=== PATIENT | female | born 1965 | race Caucasian/White ===

== ENCOUNTER 2021-08-26 12:38 | Emergency (ER) | payer BC ==
--- OUTSIDE RECORDS SUMMARY | 2021-08-26 12:40 | XMS REPORT | Continuity of Care Document ---
:1965 Author Organization [facility] t Address [address] [place] [address] Care Team Providers Name Role Phone Cici Coyle Attending Clinician Unavailable Cici Coyle Admitting Clinician Unavailable Problems This patient has no known problems. Allergies, Adverse Reactions, Alerts This patient has no known allergies or adverse reactions. Medications This patient has no known medications. Procedures This patient has no known procedures. Encounters Start End Encounter Admission Attending Care Care Encounter Source Date/Time Date/Time Type Type Clinicians Facility Department ID 2021-06-17 Outpatient BRINDA Coyle [facility] [id number] [facility] [address] 13:46:31 [place] [id number] [facility] 2021-03-31 2021-03-31 ambulatory [facility] [id number] [facility] 2021-01-29 2021-01-29 Outpatient [facility] [id number] [facility] 2021-01-27 2021-01-27 Outpatient [facility] [id number] [facility] Results This patient has no known results.
--- NOTE | 2021-08-26 13:11 | RAD REPORT ---
EXAM DESCRIPTION: CT - Stone Protocol - 08/26/2021 12:58 pm CLINICAL HISTORY: Flank pain. FLANK PAIN COMPARISON: No comparisons TECHNIQUE: Axial images were obtained without oral or IV contrast. Lack of contrast limits solid org an and vascular assessment. The [id number] spans the entirety of the system partially obscuring uppermost abdomen and lung bases. Coronal reformatted images were obtained and reviewed. All CT scans are performed using dose optimization technique as appropriate and may include automated exposure control or mA/KV adjustment according to patient size. FINDINGS: The lower lung oden are clear. Imaged portions of the liver and spleen show no suspicious findings on non-contrast imaging.Numerous hepatic cysts are present, likely benign. Small hiatal hernia. The pancreas and left adrenal gland ar e normal.11 mm adrenal adenoma. No pathologic lymphadenopathy in the abdomen or pelvis. 3 mm stone is present in the proximal left ureter with mild left hydronephrosis. Additional punctate calculi are present in the calices of the left kidney. No right-sided stones evident. No bowel obstruction, free air, free fluid or abscess. Normal appendix noted.Diverticulosis coli of t he sigmoid colon is present without diverticulitis. No significant bony abnormality. IMPRESSION: 3 mm stone proximal left ureter with mild left hydronephrosis. Left nephrolithiasis.
[2021-08-26] MEDS ORDERED: ONDANSETRON 4 MG/2 ML VIAL ONE ×2 (13:12→15:39)
[2021-08-26] MEDS ORDERED: NA CHLORIDE 0.9% 1,000 ML ONE (13:12)
[2021-08-26] MEDS ORDERED: KETOROLAC 30 MG/ML INJ ONE (13:12)
[2021-08-26 13:15] LABS: Urine Blood Trace-intact (Negative); Urine Glucose Negative (Negative); Urine Protein Negative (Negative); Urine Specific Gravity 1.025 (1.005-1.030); Urine pH 6.5 (5.0-7.0)
[2021-08-26 13:33] LABS: Urine Bacteria <20 /HPF (<20); Urine Mucus 1+ /HPF (NONE SEEN)
[2021-08-26] MEDS ORDERED: TAMSULOSIN 0.4 MG SR CAP ONE (13:38)
[2021-08-26] MEDS ORDERED: NA CHLORIDE 0.9% 50 ML ONE (13:39)
[2021-08-26] MEDS ORDERED: CEFTRIAXONE 1000 MG/VIAL ONE (13:39)
[2021-08-26] MEDS ORDERED: MAGNESIUM SULFATE 1 gm IVPB 1 GM/100 ML BAG IV ONE (13:39)
[2021-08-26 14:05] LABS: Absolute Lymphocytes (CBC) 1.3 K/uL (0.7-4.9); Hematocrit 38.1 % (36.0-45.0); Lymphocytes % 31.3 % (15.3-44.8); MPV 7.4 fL (7.6-11.3)
[2021-08-26 14:10] LABS: Albumin 3.7 g/dL (3.4-5.0); Bilirubin Total 0.3 mg/dL (0.2-1.0); Potassium 3.7 mmol/L (3.5-5.1); Protein, Total 7.5 g/dL (6.4-8.2)
[2021-08-26] MEDS ORDERED: HYDROMORPHONE HCL 1 MG/ML INJ ONE (14:23)
--- NOTE | 2021-08-26 15:32 | EDPHYS ---
Physician Documentation [facility] Name: Louise Bazzi Age: 56 yrs Sex: Female : 1965 Arrival Date: 08/26/2021 Time: 12:39 Bed 15 Private MD: Bill Lopez ED Physician Ulices Bobo HPI: 08/26 12:50 This 56 yrs old Female presents to ER via Ambulatory with complaints of Possible Kidney cp Stone. 12:50 The patient complains of pain in the left flank. The pain does not radiate. Onset: The cp symptoms/episode began/occurred suddenly, just prior to arrival. Associated signs and symptoms: Pertinent negatives: diarrhea, dysuria, fever, pain radiating to the lower extremities, vomiting. Severity of pain: in the emergency department the pain is unchanged despite home interventions. The patient has experienced similar episodes in the past, today's symptoms are similar, to when the patient was apparently diagnosed with kidney stone. Historical: - Allergies: 12:44 No Known Allergies; jd3 - Home Meds: 12:44 Synthroid Oral [Active]; jd3 - PMHx: 12:44 Thyroid problem; colitis; jd3 - PSHx: 12:44 None; jd3 - Immunization history:: Adult Immunizations up to date, Client reports receiving the 2nd dose of the Covid vaccine, Flu vaccine is up to date. - Social history:: Smoking status: Reported history of juuling and/or vaping. ROS: 12:55 Back: Positive for flank pain, on the left, Negative for pain at rest, pain with cp movement. 12:55 Cardiovascular: Negative for chest pain, palpitations. cp 12:55 Respiratory: Negative for cough, shortness of breath, wheezing. 12:55 Abdomen/GI: Positive for nausea, Negative for vomiting, diarrhea, constipation. Exam: 13:05 Constitutional: The patient appears in no acute distress, alert, awake, non-toxic, well cp developed, well nourished, uncomfortable. 13:05 Head/Face: Normocephalic, atraumatic. cp 13:05 Eyes: Periorbital structures: appear normal, Conjunctiva: normal, no exudate, no injection, Sclera: no appreciated abnormality, Lids and lashes: appear normal, bilaterally. 13:05 ENT: External ear(s): are unremarkable, Nose: is normal, Mouth: Lips: moist, Oral mucosa: moist, Posterior pharynx: Airway: no evidence of obstruction, patent. 13:05 Chest/axilla: Inspection: normal. 13:05 Cardiovascular: Rate: normal. 13:05 Respiratory: the patient does not display signs of respiratory distress, Respirations: normal, no use of accessory muscles, no retractions, labored breathing, is not present, Breath sounds: are clear throughout, no decreased breath sounds, no stridor, no wheezing. 13:05 Abdomen/GI: Inspection: abdomen appears normal, Bowel sounds: active, all quadrants, Palpation: soft, in all quadrants, moderate abdominal tenderness, in the posterior aspect of left lateral abdomen and anterior aspect of left lateral abdomen, rebound tenderness, is not appreciated, voluntary guarding, is elicited in the posterior aspect of left lateral abdomen and anterior aspect of left lateral abdomen. 13:05 Neuro: Orientation: to person, place \T\ time. Mentation: is normal, Motor: moves all fours, strength is normal, Sensation: is normal, Gait: is steady. Vital Signs: 12:44 BP 106 / 72; Pulse 85; Resp 18 S; Temp 97.8(TE); Pulse Ox 98% on R/A; Weight 86.18 kg jd3 (R); Height 5 ft. 10 in. (177.80 cm) (R); Pain 10/10; 13:33 BP 125 / 72; Pulse 83; Resp 16; Pulse Ox 98% on R/A; vg1 14:15 BP 143 / 88; Pulse 82; Resp 16; Pulse Ox 100% on R/A; vg1 15:30 BP 112 / 67; Pulse 72; Resp 16; Pulse Ox 98% on R/A; vg1 12:44 Body Mass Index 27.26 (86.18 kg, 177.80 cm) jd3 MDM: 12:49 Patient medically screened. cp 13:00 Differential diagnosis: nephrolithiasis, pyelonephritis, UTI, diverticulitis, cp pancreatitis. 14:48 ED course: Review of [place] prescription monitor website shows patient last RX for pain cp meds, Tramadol 50 mg #40 on 05/11/2021. 15:32 Data reviewed: vital signs, nurses notes, lab test result(s), radiologic studies, CT cp scan. 15:32 Counseling: I had a detailed discussion with the patient and/or guardian regarding: the cp historical points, exam findings, and any diagnostic results supporting the discharge/admit diagnosis, lab results, radiology results, to return to the emergency department if symptoms worsen or persist or if there are any questions or concerns that arise at home. Response to treatment: the patient's symptoms have markedly improved after treatment, Pain improved with meds. Will discharge to home for continued monitoring. 08/26 12:45 Order name: CBC with Diff; Complete Time: 14:14 08/26 14:39 Interpretation: Normal except: WBC 4.1; MPV 7.4. 08/26 12:45 Order name: CMP; Complete Time: 14:14 08/26 14:15 Interpretation: Normal except: CL 117; CO2 20; GLUC 110; GFR 70; CA 8.4; A/G 1.0; GLOB cp 3.8. 08/26 12:45 Order name: Lipase; Complete Time: 14:14 08/26 14:15 Interpretation: Reviewed. 08/26 12:45 Order name: Urine Microscopic Only; Complete Time: 13:55 08/26 13:55 Interpretation: Normal except: URBC 5-10; SQEPI 5-10. 08/26 12:45 Order name: CT Stone Protocol; Complete Time: 13:16 cp 08/26 13:17 Interpretation: Report reviewed. 08/26 13:16 Order name: Urine Dipstick-Ancillary; Complete Time: 13:16 EDMS 08/26 13:16 Interpretation: Normal except: UKET 1+; UBLD Trace-intact. 08/26 12:45 Order name: IV Saline Lock; Complete Time: 13:29 cp 08/26 12:45 Order name: Labs collected and sent; Complete Time: 13:29 cp 08/26 12:45 Order name: Urine Dipstick-Ancillary (obtain specimen); Complete Time: 14:17 cp 08/26 13:26 Order name: Urine Strainer; Complete Time: 13:29 cp Administered Medications: 13:18 Drug: Ketorolac 15 mg Route: IVP; Site: left forearm; vg1 13:45 Follow up: Response: No adverse reaction; No change in condition vg1 13:18 Drug: NS 0.9% 500 ml Route: IV; Rate: bolus; Site: left forearm; vg1 14:07 Follow up: IV Status: Completed infusion; IV Intake: 500ml vg1 13:20 Drug: Zofran (Ondansetron) 4 mg Route: IVP; Site: left forearm; vg1 15:01 Follow up: Response: No adverse reaction; Marked relief of symptoms vg1 13:35 Drug: Flomax (tamsulosin) 0.4 mg Route: PO; vg1 15:01 Follow up: Response: No adverse reaction vg1 13:40 Drug: Magnesium Sulfate 1 grams Route: IVPB; Infused Over: 30 mins; Site: left forearm; vg1 14:16 Follow up: IV Status: Completed infusion vg1 14:07 Drug: NS 0.9% 500 ml Route: IV; Rate: 125 ml/hr; Site: left forearm; vg1 16:02 Follow up: IV Status: Completed infusion; IV Intake: 200ml vg1 14:16 Drug: Rocephin - (cefTRIAXone) 1 grams Route: IVPB; Infused Over: 30 mins; Site: left vg1 forearm; 15:01 Follow up: IV Status: Completed infusion; IV Intake: 50ml vg1 14:23 Drug: Dilaudid (HYDROmorphone) 1 mg {Note: RASS 1.} Route: IVP; Site: left forearm; vg1 15:01 Follow up: Response: No adverse reaction; Pain is decreased vg1 15:51 Drug: Zofran (Ondansetron) 4 mg Route: IVP; Site: left forearm; vg1 15:51 Follow up: Response: No adverse reaction; Medication administered at discharge. vg1 Disposition: 17:50 Co-signature as Attending Physician, Ulices Bobo MD I agree with the assessment and kdr plan of care. Disposition Summary: 08/26/21 15:32 Discharge Ordered Location: Home cp Problem: new cp Symptoms: have improved cp Condition: Stable cp Diagnosis - Calculus of kidney with calculus of ureter - left cp Followup: cp - With: Job Golden MD - When: 2 - 3 days - Reason: Recheck today's complaints Discharge Instructions: - Discharge Summary Sheet cp - Kidney Stones cp - Renal Colic cp Forms: - Medication Reconciliation Form cp - Thank You Letter cp - Antibiotic Education cp - Prescription Opioid Use cp Prescriptions: - Flomax 0.4 mg Oral capsule - take 1 capsule by ORAL route once daily As needed 1/2 hour following the same cp meal each day; 7 capsule; Refills: 0, Product Selection Permitted - Zofran 4 mg Oral Tablet - take 1 tablet by ORAL route every 12 hours As needed; 20 tablet; Refills: 0, cp Product Selection Permitted - Tylenol-Codeine #3 300 mg-30 mg Oral - take 2 tablet by ORAL route every 6-8 hours As needed; 20 tablet; Refills: 0, cp Product Selection Permitted Signatures: Dispatcher [employer] EDWV Ulices Bobo MD MD kdr J Carlos Jenkins PA PA cp Derrell Mccrary RN RN jd3 Dilma Matias RN RN vg1 Corrections: (The following items were deleted from the chart) 14:15 14:14 Normal except: CL 117; CO2 20; GLUC 110; GFR 70; CA 8.4. cp cp 14:39 14:14 Normal except: WBC 4.1. cp cp
--- NOTE | 2021-08-26 15:32 | ER ---
Nurse's Notes [facility] Name: Louise Bazzi Age: 56 yrs Sex: Female : 1965 Arrival Date: 08/26/2021 Time: 12:39 Bed 15 Private MD: Bill Lopez Diagnosis: Calculus of kidney with calculus of ureter-left Presentation: 08/26 12:42 Chief complaint: Patient states: "I was intially having pain on Tuesday, but it went jd3 away. it started happening again today and it feels similar to previous kidney stones.". Coronavirus screen: At this time, the client does not indicate any symptoms associated with coronavirus-19. Ebola Screen: No symptoms or risks identified at this time. Initial Sepsis Screen: Does the patient meet any 2 criteria? No. Patient's initial sepsis screen is negative. Does the patient have a suspected source of infection? No. Patient's initial sepsis screen is negative. Risk Assessment: Do you want to hurt yourself or someone else? Patient reports no desire to harm self or others. Onset of symptoms was August 26, 2021. 12:42 Method Of Arrival: Ambulatory jd3 12:42 Acuity: LJ 3 jd3 Historical: - Allergies: 12:44 No Known Allergies; jd3 - Home Meds: 12:44 Synthroid Oral [Active]; jd3 - PMHx: 12:44 Thyroid problem; colitis; jd3 - PSHx: 12:44 None; jd3 - Immunization history:: Adult Immunizations up to date, Client reports receiving the 2nd dose of the Covid vaccine, Flu vaccine is up to date. - Social history:: Smoking status: Reported history of juuling and/or vaping. Screenin:06 Abuse screen: Denies threats or abuse. Nutritional screening: No deficits noted. vg1 Tuberculosis screening: No symptoms or risk factors identified. Fall Risk No fall in past 12 months (0 pts). No secondary diagnosis (0 pts). IV access (20 points). Ambulatory Aid- None/Bed Rest/Nurse Assist (0 pts). Gait- Normal/Bed Rest/Wheelchair (0 pts) Mental Status- Oriented to own ability (0 pts). Total Meek Fall Scale indicates No Risk (0-24 pts). Assessment: 13:06 General: Appears in no apparent distress. uncomfortable, Behavior is calm, cooperative. vg1 Pain: Complains of pain in left flank and pelvis Pain currently is 10 out of 10 on a pain scale. Pain began 2 hours ago. Noted to be grimacing, guarding. Neuro: Level of Consciousness is awake, alert, obeys commands, Oriented to person, place, time, situation. Cardiovascular: Patient's skin is warm and dry. Respiratory: Airway is patent Respiratory effort is even, unlabored. GI: Abdomen is flat, non-distended, Bowel sounds present X 4 quads. Abd is soft Reports nausea, Patient currently denies vomiting. : Urine is chantal in color Denies burning with urination. EENT: No signs and/or symptoms were reported regarding the EENT system. Derm: Skin is intact, is healthy with good turgor. Musculoskeletal: Circulation, motion, and sensation intact. 14:00 Reassessment: Patient appears in no apparent distress at this time. No changes from vg1 previously documented assessment. Patient and/or family updated on plan of care and expected duration. Pain level reassessed. Patient is alert, oriented x 3, equal unlabored respirations, skin warm/dry/pink. 15:02 Reassessment: Patient appears in no apparent distress at this time. Patient and/or vg1 family updated on plan of care and expected duration. Pain level reassessed. Patient is alert, oriented x 3, equal unlabored respirations, skin warm/dry/pink. 15:25 Reassessment: pt assisted to restroom; pt was able to urinate and urine strainer was vg1 used; it appears that pt has not passed kidney stone. Pt stated nausea and is requesting nausea medication; provider notified. 16:00 Reassessment: Patient appears in no apparent distress at this time. Patient and/or vg1 family updated on plan of care and expected duration. Pain level reassessed. Patient is alert, oriented x 3, equal unlabored respirations, skin warm/dry/pink. Vital Signs: 12:44 BP 106 / 72; Pulse 85; Resp 18 S; Temp 97.8(TE); Pulse Ox 98% on R/A; Weight 86.18 kg jd3 (R); Height 5 ft. 10 in. (177.80 cm) (R); Pain 10/10; 13:33 BP 125 / 72; Pulse 83; Resp 16; Pulse Ox 98% on R/A; vg1 14:15 BP 143 / 88; Pulse 82; Resp 16; Pulse Ox 100% on R/A; vg1 15:30 BP 112 / 67; Pulse 72; Resp 16; Pulse Ox 98% on R/A; vg1 12:44 Body Mass Index 27.26 (86.18 kg, 177.80 cm) jd3 ED Course: 12:39 Patient arrived in ED. as 12:39 Bill Lopez is Private Physician. as 12:39 J Carlos Jenkins PA is PHCP. cp 12:39 Ulices Bobo MD is Attending Physician. cp 12:43 Triage completed. jd3 12:45 Arm band placed on. jd3 13:00 CT Stone Protocol In Process Unspecified. EDMS 13:06 Dilma Matias, DEL is Primary Nurse. vg1 13:06 Patient has correct armband on for positive identification. Bed in low position. Call vg1 light in reach. Side rails up X 1. Adult w/ patient. 13:18 Initial lab(s) drawn, by me, sent to lab. Inserted saline lock: 20 gauge in left vg1 forearm, using aseptic technique. Blood collected. 13:18 No provider procedures requiring assistance completed. vg1 15:31 Job Golden MD is Referral Physician. cp 16:01 IV discontinued, intact, bleeding controlled, No redness/swelling at site. Pressure vg1 dressing applied. Administered Medications: 13:18 Drug: Ketorolac 15 mg Route: IVP; Site: left forearm; vg1 13:45 Follow up: Response: No adverse reaction; No change in condition vg1 13:18 Drug: NS 0.9% 500 ml Route: IV; Rate: bolus; Site: left forearm; vg1 14:07 Follow up: IV Status: Completed infusion; IV Intake: 500ml vg1 13:20 Drug: Zofran (Ondansetron) 4 mg Route: IVP; Site: left forearm; vg1 15:01 Follow up: Response: No adverse reaction; Marked relief of symptoms vg1 13:35 Drug: Flomax (tamsulosin) 0.4 mg Route: PO; vg1 15:01 Follow up: Response: No adverse reaction vg1 13:40 Drug: Magnesium Sulfate 1 grams Route: IVPB; Infused Over: 30 mins; Site: left forearm; vg1 14:16 Follow up: IV Status: Completed infusion vg1 14:07 Drug: NS 0.9% 500 ml Route: IV; Rate: 125 ml/hr; Site: left forearm; vg1 16:02 Follow up: IV Status: Completed infusion; IV Intake: 200ml vg1 14:16 Drug: Rocephin - (cefTRIAXone) 1 grams Route: IVPB; Infused Over: 30 mins; Site: left vg1 forearm; 15:01 Follow up: IV Status: Completed infusion; IV Intake: 50ml vg1 14:23 Drug: Dilaudid (HYDROmorphone) 1 mg {Note: RASS 1.} Route: IVP; Site: left forearm; vg1 15:01 Follow up: Response: No adverse reaction; Pain is decreased vg1 15:51 Drug: Zofran (Ondansetron) 4 mg Route: IVP; Site: left forearm; vg1 15:51 Follow up: Response: No adverse reaction; Medication administered at discharge. vg1 Intake: 14:07 IV: 500ml; Total: 500ml. vg1 15:01 IV: 50ml; Total: 550ml. vg1 16:02 IV: 200ml; Total: 750ml. vg1 Outcome: 15:32 Discharge ordered by MD. cp 16:00 Discharged to home ambulatory. vg1 16:00 Condition: good 16:00 Discharge instructions given to patient, family, Instructed on discharge instructions, follow up and referral plans. medication usage, Demonstrated understanding of instructions, follow-up care, medications, Prescriptions given X 3. 16:01 Patient left the ED. vg1 Signatures: Dispatcher [employer] Asia Friedman Corey, PA PA cp Davies, Jonathon, RN RN Dilma Bowman RN RN vg1 Corrections: (The following items were deleted from the chart) 15:02 14:00 Reassessment: Patient appears in no apparent distress at this time. Patient vg1 and/or family updated on plan of care and expected duration. Pain level reassessed. Patient is alert, oriented x 3, equal unlabored respirations, skin warm/dry/pink. vg1
[2021-08-27 01:03] VITALS: TEMP 97.8
[2021-08-27 01:09] VITALS: BP 112/67; O2SAT 98
== END 2021-08-26 16:01 | disposition home or self-care (01) ==
LOC: ER 12:38
DX: N20.2 Calculus of kidney with calculus of ureter (principal); E07.9 Disorder of thyroid, unspecified
CPT/HCPCS: 96365; 96367; 96361; 85025; 36415; 83690; 80053; 76377; 74176; 96375; 99284; J3475; J1170; J7030; J2405 ×2; 81003; 81015

== ENCOUNTER 2022-04-25 18:22 | Emergency (ER) | payer BC ==
--- OUTSIDE RECORDS SUMMARY | 2022-04-25 18:25 | XMS REPORT | Continuity of Care Document ---
:[address] [facility] t Address [address] [place] [address] Care Team Providers Name Role Phone Estela Coyle Attending Clinician Unavailable Estela Coyle Admitting Clinician Unavailable Payers Payer Name Policy Type Policy Number Effective Date Expiration Date S jenny Blue Cross C1 [id number] Common Spiri [facility] Blue Cross C1 [id number] Common Spiri t [facility] Blue Cross C1 [id number] [facility] Problems Condition Condition Condition Status Onset Resolution Last Treating Co mments Source Name Details Category Date Date Treatment Clinician Date [id number] Pain, Problem Active Commo n [id number] joint, [id number] Adhesive Problem Active Com tue capsulitis [facility] shoulder [facility] Allergies, Adverse Reactions, Alerts This patient has no known allergies or adverse reactions. Social History Social Habit Start Date Stop Date Quantity Comments Source History of Tobacco Use Co mmon [facility] Sex Assigned At Com mon [facility] Smoking Status Start Date Stop Date Source Never Smoker [facility] Medications Ordered Filled Start Stop Current Ordering Indication Dosage Frequency Signature Comments Components Source Medication Medication Date Date Medication? Clinician (SIG) Name Name Bupivicaine Bupivicaine 2022-0 No 2.5mg Common Valmeyer Valmeyer 10-27 Spirit 00:00: - [facility] Kenalog Kenalog 2021-0 No 40mg Common (Triamcinol (Triamcinol 6- S pirit one) one) 00:00: - [facility] Bupivicaine Bupivicaine 2020-0 No 2.5mg Common Valmeyer Valmeyer 01-29 Spirit 00:00: - [facility] Kenalog Kenalog 2020-0 No 40mg Common (Triamcinol (Triamcinol 01-29 S pirit one) one) 00:00: - [facility] Bupivicaine Bupivicaine 2020-0 No 2.5mg Common Valmeyer Valmeyer 01-29 Spirit 00:00: - [facility] Kenalog Kenalog 2020-0 No 40mg Common (Triamcinol (Triamcinol - S pirit one) one) 00:00: - [facility] XELJANZ 5mg XELJANZ 5mg 1-0 No 1{table XELJANZ 9-07 t} 5mg 00:00: 00 XELJANZ 5mg XELJANZ 5mg 1-0 No 1{table XELJANZ 9-07 t} 5mg 00:00: 00 XELJANZ 5mg XELJANZ 5mg 2021-0 No 1{table XELJANZ 9-07 t} 5mg 00:00: 00 XELJANZ 5mg XELJANZ 5mg 1-0 No 1{table XELJANZ 9-07 t} 5mg 00:00: 00 XELJANZ 5mg XELJANZ 5mg 2021-0 No 1{table XELJANZ 9-07 t} 5mg 00:00: 00 Mesalamine Mesalamine No Mesalamine 1.2 GM 1.2 GM 1.2 GM Colesevelam Colesevelam No Colesevela HCl 625 MG HCl 625 MG m HCl 625 MG azaTHIOprin azaTHIOprin No azaTHIOpri e 50 MG e 50 MG ne 50 MG methylPREDN methylPREDN No methylPRED ISolone 4 ISolone 4 NISolone 4 MG MG MG Levothyroxi Levothyroxi No Levothyrox ne Sodium ne Sodium ine Sodium 75 MCG 75 MCG 75 MCG Xeljanz 5 Xeljanz 5 No Xeljanz 5 MG MG MG Mesalamine Mesalamine No Mesalamine 1.2 GM 1.2 GM 1.2 GM Colesevelam Colesevelam No Colesevela HCl 625 MG HCl 625 MG m HCl 625 MG azaTHIOprin azaTHIOprin No azaTHIOpri e 50 MG e 50 MG ne 50 MG methylPREDN methylPREDN No methylPRED ISolone 4 ISolone 4 NISolone 4 MG MG MG Levothyroxi Levothyroxi No Levothyrox ne Sodium ne Sodium ine Sodium 75 MCG 75 MCG 75 MCG Xeljanz 5 Xeljanz 5 No Xeljanz 5 MG MG MG Xeljanz 5 Xeljanz 5 No Xeljanz 5 MG MG MG Mesalamine Mesalamine No Mesalamine 1.2 GM 1.2 GM 1.2 GM azaTHIOprin azaTHIOprin No azaTHIOpri e 50 MG e 50 MG ne 50 MG methylPREDN methylPREDN No methylPRED ISolone 4 ISolone 4 NISolone 4 MG MG MG Levothyroxi Levothyroxi No Levothyrox ne Sodium ne Sodium ine Sodium 75 MCG 75 MCG 75 MCG Colesevelam Colesevelam No Colesevela HCl 625 MG HCl 625 MG m HCl 625 MG Xeljanz 5 Xeljanz 5 No Xeljanz 5 MG MG MG Mesalamine Mesalamine No Mesalamine 1.2 GM 1.2 GM 1.2 GM azaTHIOprin azaTHIOprin No azaTHIOpri e 50 MG e 50 MG ne 50 MG methylPREDN methylPREDN No methylPRED ISolone 4 ISolone 4 NISolone 4 MG MG MG Levothyroxi Levothyroxi No Levothyrox ne Sodium ne Sodium ine Sodium 75 MCG 75 MCG 75 MCG Colesevelam Colesevelam No Colesevela HCl 625 MG HCl 625 MG m HCl 625 MG azaTHIOprin azaTHIOprin No azaTHIOpri e 50 MG e 50 MG ne 50 MG Xeljanz 5 Xeljanz 5 No Xeljanz 5 MG MG MG Levothyroxi Levothyroxi No Levothyrox ne Sodium ne Sodium ine Sodium 75 MCG 75 MCG 75 MCG methylPREDN methylPREDN No methylPRED ISolone 4 ISolone 4 NISolone 4 MG MG MG Colesevelam Colesevelam No Colesevela HCl 625 MG HCl 625 MG m HCl 625 MG Mesalamine Mesalamine No Mesalamine 1.2 GM 1.2 GM 1.2 GM Immunizations Ordered Immunization Filled Immunization Date Status Commen ts Source Name Name Bupivicaine Valmeyer Bupivicaine Valmeyer 2021-01-29 Completed [facility] 13:18:00 - [facility] Bupivicaine Valmeyer Bupivicaine Valmeyer 2021-01-29 Completed [facility] 13:18:00 [facility] Kenalog Kenalog 2021-01-29 Completed [facility] (Triamcinolone) (Triamcinolone) 13:17:00 [facility] Kenalog Kenalog 2021-01-29 Completed [facility] (Triamcinolone) (Triamcinolone) 13:17:00 [facility] Vital Signs Vital Name Observation Time Observation Value Comments Source height 2021-10-27 14:00:00 69.5 [in_i] Common [facility] weight 2021-10-27 14:00:00 199.1 [lb_av] Common [facility] temperature 2021-10-27 14:00:00 97.7 [degF] Common [facility] bmi 2021-10-27 14:00:00 28.98 kg/m2 [facility] blood pressure 2021-10-27 14:00:00 138 mm[Hg] [facility] - systolic [facility] blood pressure 2021-10-27 14:00:00 86 mm[Hg] [facility] - diastolic [facility] height 2021-03-31 15:00:00 69.5 [in_i] Common [facility] weight 2021-03-31 15:00:00 195 [lb_av] [facility] bmi 2021-03-31 15:00:00 28.38 kg/m2 Common [facility] blood pressure 2021-03-31 15:00:00 126 mm[Hg] Common [facility] - systolic [facility] blood pressure 2021-03-31 15:00:00 79 mm[Hg] Common [facility] - diastolic [facility] height 2021-01-29 13:00:00 69.5 [in_i] Common S pirit - [facility] weight 2021-01-29 13:00:00 195 [lb_av] Common S pirit - [facility] bmi 2021-01-29 13:00:00 28.38 kg/m2 Common S pirit - [facility] blood pressure 2021-01-29 13:00:00 122 mm[Hg] Common [facility] - systolic [facility] blood pressure 2021-01-29 13:00:00 72 mm[Hg] Common [facility] - diastolic [facility] height 2021-01-27 13:30:00 69.5 [in_i] Common S pirit - [facility] weight 2021-01-27 13:30:00 195 [lb_av] Common S pirit - [facility] bmi 2021-01-27 13:30:00 28.38 kg/m2 Common S pirit - [facility] blood pressure 2021-01-27 13:30:00 128 mm[Hg] Common [facility] - systolic [facility] blood pressure 2021-01-27 13:30:00 70 mm[Hg] Common [facility] - diastolic [facility] Procedures This patient has no known procedures. Encounters Start End Encounter Admission Attending Care Care Encounter Source Date/Time Date/Time Type Type Clinicians Facility Department ID 2021-06-17 Out[facility] [id number] Common 13:46:31 Estela [id number] Spiri t - [facility] 2021-10-27 2021-10-27 OFFICE ST[facility] ST[facility] [id number] Co mmon 00:00:00 00:00:00 VISIT Spirit ESTAB PT - [facility] LEVEL 4 [facility] 2021-10-01 2021-10-01 (TEL) STLC STLC [id number] Co mmon 00:00:00 00:00:00 Spirit - [facility] 2021-03-31 2021-03-31 OFFICE STLC STLC [id number] Co mmon 00:00:00 00:00:00 VISIT EST Spir it PT LEVEL 3 - [facility] 2021-01-29 2021-01-29 (IN/ASP) STLC STLC [id number] C ommon 00:00:00 00:00:00 INJ ASP Spirit [facility] 2021-01-27 2021-01-27 CONSULT - STLMLC STLC [id number] Common 00:00:00 00:00:00 OFFICE, L4 Spi rit [facility] Results This patient has no known results.
[2022-04-25] MEDS ORDERED: MORPHINE 4 MG/ML SYR ONE (18:51)
[2022-04-25] MEDS ORDERED: ONDANSETRON 4 MG/2 ML VIAL ONE (18:52)
[2022-04-25] MEDS ORDERED: NA CHLORIDE 0.9% 1,000 ML ONE ×2 (18:52→19:49)
[2022-04-25 19:06] LABS: Absolute Lymphocytes (CBC) 0.9 K/uL (0.7-4.9); Hematocrit 37.1 % (36.0-45.0); Lymphocytes % 11.3 % (15.3-44.8); MCV 91.7 fL (80-100); MPV 7.5 fL (7.6-11.3); RBC Red Blood Cell Count 4.05 M/uL (3.86-4.86)
[2022-04-25 19:21] LABS: Albumin 3.6 g/dL (3.4-5.0); Bilirubin Total 0.3 mg/dL (0.2-1.0); Protein, Total 7.6 g/dL (6.4-8.2)
[2022-04-25 19:22] LABS: Potassium 4.1 mmol/L (3.5-5.1)
[2022-04-25] MEDS ORDERED: KETOROLAC 30 MG/ML INJ ONE (19:49)
--- NOTE | 2022-04-25 20:29 | RAD REPORT ---
EXAM DESCRIPTION: CT - Stone Protocol - 04/25/2022 8:19 pm CLINICAL HISTORY: left flank pain COMPARISON: Stone Protocol dated 08/26/2021 TECHNIQUE: Axial 3 mm thick images were obtained without oral or IV contrast. The [id number] span s the entirety of the system including uppermost abdomen and lung bases. All CT scans are performed using dose optimization technique as appropriate and may include automated exposure control or mA/KV adjustment according to patient size. FINDINGS: Mild hydronephrosis of the left-side pelvis and calices present secondary to a 4 mm stone in the proximal left ureter near the UPJ. A 3 millimeter nonobstructing calyx calcification is presen t posterior mid left kidney. No right-sided hydronephrosis or calculus. No suspicious renal masses. I sodense masses and pyelonephritis are not excluded on a stone protocol CT scan. Small bilateral adren al masses are on change from Stacy examination. 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 No urinary bladder suspicious finding. No uterine significant finding. There is slight lobulation that could be due to 1 or more small fibro ids. No left ovarian abnormality. Right ovary contains a 3 centimeter cyst. Liver shows numerous variably sized simple cysts. Largest is 7 cm. No suspicious characteristics flow to sinuses. These match [facility] imaging. Liver attenuation shows mild fatty infiltration. Spleen and p ancreas show no suspicious findings. No gallbladder or biliary tree abnormality identified. No suspicious bowel findings. No hernia, mass or bulky lymphadenopathy noted. No free air, free fluid or inflammatory stranding. No significant bony abnormality. IMPRESSION: A 4 mm left ureteral stone near the UPJ causes mild hydronephrosis of the pelvis and cristy ices. Mild fatty infiltration of the liver with numerous variably sized cysts showing simple characteristic s. These are stable from prior imaging. No acute GI finding. Right ovary contains a 3 cm cyst. Isodense masses and pyelonephritis are not excluded on stone protocol technique.
[2022-04-25] MEDS ORDERED: TAMSULOSIN 0.4 MG SR CAP ONE (20:57)
[2022-04-25] MEDS ORDERED: HYDROCODONE/APAP 10/325 TAB ONE (20:57)
[2022-04-25] MEDS ORDERED: MAGNESIUM SULFATE 1 gm IVPB 1 GM/100 ML BAG IV ONE (20:57)
[2022-04-25 21:25] LABS: Urine Blood 3+ (Negative); Urine Glucose Negative (Negative); Urine Protein 1+ (Negative); Urine Specific Gravity >=1.030 (1.005-1.030)
[2022-04-25 21:39] LABS: Urine Bacteria <20 /HPF (<20); Urine Mucus 2+ /HPF (None Seen); Urine RBC >50 /HPF (None Seen)
--- NOTE | 2022-04-25 22:19 | EDPHYS ---
Physician Documentation [facility] Name: Louise Bazzi Age: 57 yrs Sex: Female : 1965 Arrival Date: 04/25/2022 Time: 18:22 Bed 12 Private MD: ED Physician J Carlos Villa HPI: 04/25 22:17 This 57 yrs old Female presents to ER via Ambulatory with complaints of Low Back Pain. kb 22:17 The patient complains of pain in the left flank. The pain does not radiate. Onset: The kb symptoms/episode began/occurred today. Modifying factors: The symptoms are alleviated by nothing. the symptoms are aggravated by nothing. Associated signs and symptoms: The patient has no apparent associated signs or symptoms. Severity of pain: At its worst the pain was moderate in the emergency department the pain is unchanged. The patient has experienced similar episodes in the past. The patient has not recently seen a physician. 22:18 Pt reports left flank pain that started today. Reports pain is similar to previous kb kidney stones. Denies urinary symptoms. Historical: - Allergies: 18:26 No Known Allergies; ld1 - PMHx: 18:26 Colitis; Thyroid problem; ld1 - PSHx: 18:26 None; ld1 - Immunization history:: Adult Immunizations up to date, Client reports receiving the 2nd dose of the Covid vaccine. - Social history:: Smoking status: Patient denies any tobacco usage or history of. Patient/guardian denies using alcohol. ROS: 22:17 Constitutional: Negative for fever, chills, and weight loss. kb 22:17 Back: Positive for flank pain, on the left. 22:17 All other systems are negative. Exam: 22:17 Constitutional: This is a well developed, well nourished patient who is awake, alert, kb and in no acute distress. Head/Face: Normocephalic, atraumatic. ENT: Moist Mucous membranes Cardiovascular: Regular rate and rhythm with a normal S1 and S2. No gallops, murmurs, or rubs. No pulse deficits. Respiratory: Respirations even and unlabored. No increased work of breathing. Talking in full sentences Abdomen/GI: Soft, non-tender. No distention Skin: Warm, dry with normal turgor. Normal color. MS/ Extremity: Pulses equal, no cyanosis. Neurovascular intact. Full, normal range of motion. Neuro: Awake and alert, GCS 15, oriented to person, place, time, and situation. Moves all extremities. Normal gait. Psych: Awake, alert, with orientation to person, place and time. Behavior, mood, and affect are within normal limits. 22:17 Back: CVA tenderness, that is moderate, is noted on the left. Vital Signs: 18:26 BP 145 / 86; Pulse 71; Resp 18; Temp 98.7(TE); Pulse Ox 100% on R/A; Weight 86.18 kg; ld1 Height 5 ft. 10 in. (177.80 cm); Pain 10/10; 22:00 BP 133 / 66; Pulse 79; Resp 21; Temp 98.6; Pulse Ox 95% on R/A; vc1 18:26 Body Mass Index 27.26 (86.18 kg, 177.80 cm) ld1 MDM: 18:29 Patient medically screened. kb 22:15 Data reviewed: vital signs, nurses notes. Data interpreted: Pulse oximetry: on room air kb is 95 %. Interpretation: normal. Counseling: I had a detailed discussion with the patient and/or guardian regarding: the historical points, exam findings, and any diagnostic results supporting the discharge/admit diagnosis, lab results, radiology results, the need for outpatient follow up, a urologist, to return to the emergency department if symptoms worsen or persist or if there are any questions or concerns that arise at home. ED course: Pt controlled, pt ready to go home. Will call Dr Golden' office tomorrow for follow up. 04/25 18:31 Order name: CBC with Diff; Complete Time: 19:19 kb 04/25 18:31 Order name: CMP; Complete Time: 19:27 kb 04/25 18:31 Order name: Lipase; Complete Time: 19:27 kb 04/25 18:31 Order name: Urine Microscopic Only; Complete Time: 21:46 kb 04/25 18:31 Order name: CT Stone Protocol; Complete Time: 20:30 kb 04/25 21:26 Order name: Urine Dipstick-Ancillary; Complete Time: 21:33 EDMS 04/25 18:31 Order name: IV Saline Lock; Complete Time: 18:48 kb 04/25 18:31 Order name: Labs collected and sent; Complete Time: 18:48 kb 04/25 18:31 Order name: Urine Dipstick-Ancillary (obtain specimen); Complete Time: 21:24 kb Administered Medications: 18:53 Drug: Zofran (Ondansetron) 4 mg Route: IVP; Site: left antecubital; ld1 18:53 Drug: morphine 4 mg Route: IVP; Infused Over: 4 mins; Site: left antecubital; ld1 19:56 Drug: NS 0.9% 1000 ml Route: IV; Rate: 1 bolus; Site: left antecubital; vc1 19:56 Drug: Ketorolac 15 mg Route: IVP; Site: left antecubital; vc1 22:35 Follow up: Response: No adverse reaction; Marked relief of symptoms vc1 21:03 Drug: [place] (HYDROcodone-acetaminophen) 10 mg-325 mg 1 tabs Route: PO; vc1 22:35 Follow up: Response: No adverse reaction; Marked relief of symptoms vc1 21:04 Drug: Magnesium Sulfate 1 grams Route: IVPB; Infused Over: 1 hrs; Site: left vc1 antecubital; 21:04 Drug: Flomax (tamsulosin) 0.4 mg Route: PO; vc1 22:35 Follow up: Response: No adverse reaction; Marked relief of symptoms vc1 Disposition Summary: 04/25/22 22:18 Discharge Ordered Location: Home kb Condition: Stable kb Diagnosis - Calculus of ureter kb Followup: kb - With: Emergency Department - When: As needed - Reason: Worsening of condition Followup: kb - With: Private Physician - When: 2 - 3 days - Reason: Recheck today's complaints, Continuance of care, Re-evaluation by your physician Followup: kb - With: Job Golden MD - When: Tomorrow - Reason: Recheck today's complaints Discharge Instructions: - Discharge Summary Sheet kb - Kidney Stones, [id number] kb - Dietary Guidelines to Help Prevent Kidney Stones kb Forms: - Medication Reconciliation Form kb - Thank You Letter kb - Antibiotic Education kb - Prescription Opioid Use kb Prescriptions: - Flomax 0.4 mg Oral capsule - take 1 capsule by ORAL route once daily 1/2 hour following the same meal each kb day; 10 capsule; Refills: 0, Product Selection Permitted - Zofran 4 mg Oral Tablet - take 1 tablet by ORAL route every 6 hours As needed; 20 tablet; Refills: 0, kb Product Selection Permitted - Diclofenac Sodium 75 mg Oral tablet,delayed release (DR/EC) - take 1 tablet by ORAL route 2 times per day As needed; 30 tablet; Refills: 0, kb Product Selection Permitted - Tylenol-Codeine #3 300 mg-30 mg Oral - take 1 tablet by ORAL route every 6 hours As needed; 10 tablet; Refills: 0, kb Product Selection Permitted Signatures: Dispatcher [employer] Bee Matthew FNP-C FNP-Ckb Dibbern, Lauren, RN RN ld1 Keysha Neri RN RN vc1
--- NOTE | 2022-04-25 22:19 | ER ---
Nurse's Notes [facility] Name: Louise Bazzi Age: 57 yrs Sex: Female : 1965 Arrival Date: 04/25/2022 Time: 18:22 Bed 12 Private MD: Diagnosis: Calculus of ureter Presentation: 04/25 18:26 Chief complaint: Patient states: Left flank pain - began at 4pm. Pt reports having ld1 kidney stones before and this feels the same. Coronavirus screen: At this time, the client does not indicate any symptoms associated with coronavirus-19. Ebola Screen: No symptoms or risks identified at this time. Initial Sepsis Screen: Does the patient meet any 2 criteria? No. Patient's initial sepsis screen is negative. Does the patient have a suspected source of infection? No. Patient's initial sepsis screen is negative. Risk Assessment: Do you want to hurt yourself or someone else? Patient reports no desire to harm self or others. Onset of symptoms was April 25, 2022 at 18:30. 18:26 Method Of Arrival: Ambulatory ld1 18:26 Acuity: LJ 3 ld1 Triage Assessment: 18:26 General: Appears in no apparent distress. uncomfortable, Behavior is calm, cooperative, ld1 appropriate for age. Pain: Complains of pain in left low back. Pain: Pain currently is 10 out of 10 on a pain scale. Quality of pain is described as throbbing, Pain began suddenly, Is continuous. EENT: No signs and/or symptoms were reported regarding the EENT system. Neuro: Level of Consciousness is awake, alert, obeys commands, Oriented to person, place, time, situation. Cardiovascular: Capillary refill < 3 seconds Patient's skin is warm and dry. Respiratory: Airway is patent Respiratory effort is even, unlabored. GI: Abdomen is round non-distended. : Reports pain in left flank(s). Derm: No signs and/or symptoms reported regarding the dermatologic system. Musculoskeletal: No signs and/or symptoms reported regarding the musculoskeletal system. Historical: - Allergies: 18:26 No Known Allergies; ld1 - PMHx: 18:26 Colitis; Thyroid problem; ld1 - PSHx: 18:26 None; ld1 - Immunization history:: Adult Immunizations up to date, Client reports receiving the 2nd dose of the Covid vaccine. - Social history:: Smoking status: Patient denies any tobacco usage or history of. Patient/guardian denies using alcohol. Screenin:12 Abuse screen: Denies injuries from another. Nutritional screening: No deficits noted. vc1 Tuberculosis screening: No symptoms or risk factors identified. Fall Risk None identified. Assessment: 22:35 Reassessment: Patient and/or family updated on plan of care and expected duration. Pain vc1 level reassessed. Patient states feeling better. Patient states symptoms have improved. Vital Signs: 18:26 BP 145 / 86; Pulse 71; Resp 18; Temp 98.7(TE); Pulse Ox 100% on R/A; Weight 86.18 kg; ld1 Height 5 ft. 10 in. (177.80 cm); Pain 10/10; 22:00 BP 133 / 66; Pulse 79; Resp 21; Temp 98.6; Pulse Ox 95% on R/A; vc1 18:26 Body Mass Index 27.26 (86.18 kg, 177.80 cm) ld1 ED Course: 18:22 Patient arrived in ED. rg4 18:26 Arm band placed on right wrist. EKG completed in triage. Results shown to MD. EKG ld1 completed in triage. Results shown to MD. 18:29 Bee Gutierrez [facility]C [facility] kb 18:29 J Carlos Villa MD is Attending Physician. kb 18:30 Triage completed. ld1 18:48 Inserted saline lock: 20 gauge in left antecubital area, using aseptic technique. Blood ld1 collected. 19:56 Keysha Neri, DEL is Primary Nurse. vc1 20:21 CT Stone Protocol In Process Unspecified. EDMS 21:24 Urine Microscopic Only Sent. vc1 22:12 Patient has correct armband on for positive identification. Side rails up X2. Adult w/ vc1 patient. Pulse ox on. NIBP on. 22:19 Job Golden MD is Referral Physician. kb 22:36 No provider procedures requiring assistance completed. No provider procedures requiring vc1 assistance completed. 22:44 IV discontinued, intact, bleeding controlled, No redness/swelling at site. Pressure vc1 dressing applied. Administered Medications: 18:53 Drug: Zofran (Ondansetron) 4 mg Route: IVP; Site: left antecubital; ld1 18:53 Drug: morphine 4 mg Route: IVP; Infused Over: 4 mins; Site: left antecubital; ld1 19:56 Drug: NS 0.9% 1000 ml Route: IV; Rate: 1 bolus; Site: left antecubital; vc1 19:56 Drug: Ketorolac 15 mg Route: IVP; Site: left antecubital; vc1 22:35 Follow up: Response: No adverse reaction; Marked relief of symptoms vc1 21:03 Drug: [place] (HYDROcodone-acetaminophen) 10 mg-325 mg 1 tabs Route: PO; vc1 22:35 Follow up: Response: No adverse reaction; Marked relief of symptoms vc1 21:04 Drug: Magnesium Sulfate 1 grams Route: IVPB; Infused Over: 1 hrs; Site: left vc1 antecubital; 21:04 Drug: Flomax (tamsulosin) 0.4 mg Route: PO; vc1 22:35 Follow up: Response: No adverse reaction; Marked relief of symptoms vc1 Medication: 22:13 VIS not applicable for this client. vc1 Outcome: 22:18 Discharge ordered by . kb 22:36 Condition: good vc1 22:43 Discharged to home ambulatory, with significant other. vc1 22:43 Discharge instructions given to patient, significant other, Instructed on discharge instructions, follow up and referral plans. medication usage, Demonstrated understanding of instructions, follow-up care, medications, Prescriptions given X 4. 22:44 Patient left the ED. vc1 Signatures: Dispatcher [employer] EDKS Bee Gutierrez FNP-C FNP-Leslie Subramanian rg4 Allyson Kathleen RN RN ld1 Keysha Neri RN RN vc1
[2022-04-25 23:47] VITALS: BP 133/66; O2SAT 95
[2022-04-25 23:58] VITALS: TEMP 98.4
== END 2022-04-25 22:44 | disposition home or self-care (01) ==
LOC: ER 18:22
DX: N20.1 Calculus of ureter (principal)
CPT/HCPCS: 85025; 36415; 83690; 80053; 76377; 74176; 96375; 96374; 99284; J3475; J7030 ×2; J2405; 81003; 81015